=== PATIENT | female | born 1955 | race Caucasian/White ===

== ENCOUNTER 2019-09-09 08:00 | Outpatient (CLI) | payer MEDICARE, OTHER ==
[~2019-09-09] VITALS: Ht 160.1 cm; Wt 75.1 kg
[2019-09-09] MEDS ORDERED: TIMOPTIC 0.25%-10 OU (08:10)
[2019-09-09] MEDS ORDERED: TAMBOCOR50 MG PO (08:14)
[2019-09-09] MEDS ORDERED: EFFEXOR 3737.5 MG/TA PO (08:17)
[2019-09-09] MEDS ORDERED: CYTOMEL 5MC5 MCG/TAB PO (08:18)
[2019-09-09] MEDS ORDERED: SYNTHROID0.05 MG/TA PO (08:19)
[2019-09-09] MEDS ORDERED: TOPROL XL 25MG25 MG PO (08:21)
[2019-09-09 08:33] VITALS: BP 127/85; PULSE 43; TEMP 98.2
[2019-09-09] MEDS ORDERED: ASPIRIN 81M81 MG/TA2 PO (09:06)
[2019-09-09 09:34] VITALS: BP 179/92; PULSE 49; TEMP 98.2
--- NOTE | 2019-09-09 09:34 | NUR ---
Discharge instructions given. Ambulated with pt to private car
== END 2019-09-09 09:35 | disposition home or self-care (01) ==
LOC: COL.CAR 08:00
DX: I48.0 Paroxysmal atrial fibrillation (principal); I45.6 Pre-excitation syndrome; Z79.82 Long term (current) use of aspirin; Z79.51 Long term (current) use of inhaled steroids; I34.0 Nonrheumatic mitral (valve) insufficiency; E03.9 Hypothyroidism, unspecified